=== PATIENT | male | born 1945 | race Caucasian/White ===

== ENCOUNTER 2016-12-24 18:58 | Emergency (ER) | payer MEDICARE ==
[~2016-12-24 18:58] MED LIST: ASPIR 8181 MG PO; CARAFATE1 GM PO; FLOMAX0.4 MG PO; GLUCOPHAGE500 MG PO; LEVAQUIN500 MG PO; NEURONTIN800 MG PO; PRILOSEC20 M1 PO; PROBIOTIC1 EACH PO; PROSCAR5 MG PO; ZOLOFT50 MG PO
== END 2016-12-24 20:49 | disposition home or self-care (01) ==
LOC: ER 18:58
DX: S39.012A Strain of muscle, fascia and tendon of lower back, initial encounter (principal); J44.9 Chronic obstructive pulmonary disease, unspecified; I10 Essential (primary) hypertension; K21.9 Gastro-esophageal reflux disease without esophagitis; F32.9 Major depressive disorder, single episode, unspecified; Z90.49 Acquired absence of other specified parts of digestive tract; Z79.82 Long term (current) use of aspirin; Z79.84 Long term (current) use of oral hypoglycemic drugs; Z79.899 Other long term (current) drug therapy; W19.XXXA Unspecified fall, initial encounter
CPT/HCPCS: 36415; 96360